=== PATIENT | female | born 1985 | race Caucasian/White ===

== ENCOUNTER 2020-10-08 14:04 | Emergency (ER) | payer OTHER, SELFPAY ==
[2020-10-08] MEDS ORDERED: LIDOCAINE 1% MPF 5 ML VIAL ONE (14:50)
--- NOTE | 2020-10-08 15:46 | EDPHYS ---
Physician Documentation [facility] Name: Anant Deras Age: 35 yrs Sex: Female : 1985 Arrival Date: 10/08/2020 Time: 14:06 Bed 13 Private MD: ED Physician Ministerio Salguero HPI: 10/08 14:41 This 35 yrs old Female presents to ER via Ambulatory with complaints of Hand ps1 Injury. 14:41 patient slammed finger in trunk of car. Laceration localized over dorsal PIP joint of ps1 right hand. Pain is moderate. Has joint pain. ROM limited 2/2 pain. . 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 - Social history:: Smoking status: Patient reports the use of cigarette tobacco products, smokes one-half pack cigarettes per day. ROS: 14:41 Constitutional: Negative for fever, chills, and weight loss, Eyes: Negative for injury, ps1 pain, redness, and discharge, Cardiovascular: Negative for chest pain, palpitations, and edema, Respiratory: Negative for shortness of breath, cough, wheezing, and pleuritic chest pain, Abdomen/GI: Negative for abdominal pain, nausea, vomiting, diarrhea, and constipation, Neuro: Negative for headache, weakness, numbness, tingling, and seizure. 14:41 MS/extremity: Positive for injury or acute deformity, laceration, pain, tenderness, of the dorsal aspect of middle phalanx of right middle finger. 14:41 Skin: Positive for laceration(s), of the dorsal aspect of proximal phalanx of right middle finger. Exam: 14:44 Constitutional: This is a well developed, well nourished patient who is awake, alert, ps1 and in no acute distress. Head/Face: Normocephalic, atraumatic. Eyes: Pupils equal round and reactive to light, extra-ocular motions intact. Lids and lashes normal. Conjunctiva and sclera are non-icteric and not injected. Cardiovascular: Regular rate and rhythm. No gallops, murmurs, or rubs. Normal PMI, no JVD. No pulse deficits. Respiratory: Lungs have equal breath sounds bilaterally, clear to auscultation and percussion. No rales, rhonchi or wheezes noted. No increased work of breathing, no retractions or nasal flaring. Abdomen/GI: Soft, non-tender, with normal bowel sounds. No distension or tympany. No guarding or rebound. No evidence of tenderness throughout. MS/ Extremity: Pulses equal, no cyanosis. Neurovascular intact. Full, normal range of motion. Neuro: Awake and alert, GCS 15, oriented to person, place, time, and situation. Cranial nerves II-XII grossly intact. Sensory grossly intact. 14:44 Skin: injury, laceration(s), that can be described as clean, no foreign body, linear, localized at PIP of dorsal aspect of right hand, third digit.. Vital Signs: 14:27 BP 122 / 78; Pulse 109; Resp 16 S; Temp 97.8(TE); Pulse Ox 100% on R/A; Weight 74.84 kg ca1 (R); Height 5 ft. 2 in. (157.48 cm) (R); Pain 10/10; 14:45 BP 119 / 95; Pulse 97; Resp 17; Pulse Ox 99% on R/A; tw2 15:35 BP 123 / 57; Pulse 91; Resp 17; Pulse Ox 100% on R/A; tw2 14:27 Body Mass Index 30.18 (74.84 kg, 157.48 cm) ca1 Procedures: 15:27 Splinting: Splint applied to dorsal aspect of proximal phalanx of right middle finger ps1 using finger splint, applied by nurse. Laceration: 15:27 Wound Repair of 2.5cm ( 1.0in ) subcutaneous laceration to dorsal aspect of proximal ps1 phalanx of right middle finger. Distal neuro/vascular/tendon intact. Anesthesia: Digital block administered with 2 mls of 1% lidocaine. Wound prep: Moderate cleansing with betadine by nurse. Skin closed with 3 5-0 Prolene using simple sutures and sterile technique. Dressed with Kerlix, tube gauze, non-adherent dressing. Patient tolerated well. MDM: 14:34 Patient medically screened. ps1 10/08 14:38 Order name: XRAY Hand RIGHT 3 View tw2 10/08 14:40 Order name: Prolene, Sutures; Complete Time: 14:41 tw2 10/08 14:40 Order name: Dressing - Wound; Complete Time: 15:38 tw2 10/08 14:40 Order name: Gloves, Sterile; Complete Time: 14:43 tw2 10/08 14:40 Order name: Setup Suture Tray; Complete Time: 14:41 tw2 Administered Medications: 14:38 Drug: Lidocaine (1 %) 5 mg {Note: by Dr. Salguero.} Route: Infiltration; tw2 Disposition: 10/08/20 15:45 Discharged to Home. Impression: Right middle finger laceration. - Condition is Stable. - Discharge Instructions: Laceration Care, Adult, [id number]. - Prescriptions for Anaprox DS 550 mg Oral Tablet - take 1 tablet by ORAL route every 12 hours As needed; 20 tablet. - Work release form, Medication Reconciliation Form, Thank You Letter, Antibiotic Education, Prescription Opioid Use form. - Follow up: Private Physician; When: 10 - 14 days; Reason: Staple/Suture removal. Follow up: Emergency Department; When: As needed; Reason: Fever > 102 F, Worsening of condition. - Problem is new. - Symptoms have improved. Signatures: Dispatcher [employer] EDClary Johnson RN RN tw2 Ministerio Salguero MD MD ps1 Joyce Valdez RN RN ca1 Corrections: (The following items were deleted from the chart) 16:01 15:45 10/08/2020 15:45 Discharged to Home. Impression: Right middle finger laceration. tw2 Condition is Stable. Forms are Work release form, Medication Reconciliation Form, Thank You Letter, Antibiotic Education, Prescription Opioid Use. Follow up: Private Physician; When: 10 - 14 days; Reason: Staple/Suture removal. Follow up: Emergency Department; When: As needed; Reason: Fever > 102 F, Worsening of condition. Problem is new. Symptoms have improved. ps1
--- NOTE | 2020-10-08 15:46 | ER ---
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 Lac on R 3rd and 4th digit. Bleeding controlled. Coronavirus screen: Client denies travel out of the [place] in the last 14 days. At this time, the client does not indicate any symptoms associated with coronavirus-19. Ebola Screen: Patient negative for fever greater than or equal to 101.5 degrees Fahrenheit, and additional compatible Ebola Virus Disease symptoms Patient denies exposure to infectious person. Patient denies travel to an Ebola-affected area in the 21 days before illness onset. No symptoms or risks identified at this time. Initial Sepsis Screen: Does the patient meet any 2 criteria? No. Patient's initial sepsis screen is negative. Does the patient have a suspected source of infection? No. Patient's initial sepsis screen is negative. Risk Assessment: Do you want to hurt yourself or someone else? Patient reports no desire to harm self or others. Onset of symptoms was October 08, 2020. 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 - Social history:: Smoking status: Patient reports the use of cigarette tobacco products, smokes one-half pack cigarettes per day. Screenin:33 Abuse screen: Denies threats or abuse. Nutritional screening: No deficits noted. tw2 Tuberculosis screening: No symptoms or risk factors identified. Fall Risk None identified. Assessment: 14:32 General: Appears uncomfortable. Pain: Complains of pain in right hand. Neuro: Level of tw2 Consciousness is awake, alert, obeys commands, Oriented to person, place, time, situation. Cardiovascular: Patient's skin is warm and dry. Respiratory: Airway is patent Respiratory effort is even, unlabored, Respiratory pattern is regular, symmetrical. GI: No signs and/or symptoms were reported involving the gastrointestinal system. : No signs and/or symptoms were reported regarding the genitourinary system. EENT: No signs and/or symptoms were reported regarding the EENT system. Derm: No signs and/or symptoms reported regarding the dermatologic system. Musculoskeletal: Swelling present in dorsal aspect of distal phalanx of right middle finger, dorsal aspect of middle phalanx of right middle finger, dorsal aspect of proximal phalanx of right middle finger and dorsal aspect of middle phalanx of right ring finger. Injury Description: Laceration sustained to dorsal aspect of proximal phalanx of right middle finger and dorsal aspect of middle phalanx of right middle finger. 15:34 Reassessment: Patient appears in no apparent distress at this time. Patient and/or tw2 family updated on plan of care and expected duration. Pain level reassessed. Patient is alert, oriented x 3, equal unlabored respirations, skin warm/dry/pink. Patient states feeling better. 16:01 Reassessment: Patient appears in no apparent distress at this time. Patient and/or tw2 family updated on plan of care and expected duration. Pain level reassessed. Patient is alert, oriented x 3, equal unlabored respirations, skin warm/dry/pink. Vital Signs: 14:27 BP 122 / 78; Pulse 109; Resp 16 S; Temp 97.8(TE); Pulse Ox 100% on R/A; Weight 74.84 kg ca1 (R); Height 5 ft. 2 in. (157.48 cm) (R); Pain 10/10; 14:45 BP 119 / 95; Pulse 97; Resp 17; Pulse Ox 99% on R/A; tw2 15:35 BP 123 / 57; Pulse 91; Resp 17; Pulse Ox 100% on R/A; tw2 14:27 Body Mass Index 30.18 (74.84 kg, 157.48 cm) ca1 ED Course: 14:06 Patient arrived in ED. ds1 14:20 Ministerio Salguero MD is Attending Physician. ps1 14:29 Triage completed. ca1 14:31 Arm band placed on right wrist. ca1 14:31 Bed in low position. Call light in reach. Pulse ox on. NIBP on. tw2 14:32 Clary Armstrong, RN is Primary Nurse. tw2 15:13 Assist provider with laceration repair on dorsal aspect of middle phalanx of right tw2 middle finger and dorsal aspect of proximal phalanx of right middle finger that was 2.5 cm. or less using sutures. Set up tray. Performed by Ministerio Salguero MD Dressed with non-adherent dressing, 4x4, and coban after xray is performed Patient tolerated well. Patient did not have IV access during this emergency room visit. 15:38 Dressings: non-adherent dressing x 1 dorsal aspect of proximal phalanx of right middle tw2 finger 4X4s X 1; dorsal aspect of proximal phalanx of right middle finger finger splint with coban, cms in tact, pt tolerated well. 15:44 XRAY Hand RIGHT 3 View In Process Unspecified. EDMS Administered Medications: 14:38 Drug: Lidocaine (1 %) 5 mg {Note: by Dr. Salguero.} Route: Infiltration; tw2 Outcome: 15:45 Discharge ordered by . ps1 16:00 Discharged to home ambulatory. tw2 16:00 Condition: stable 16:00 Discharge instructions given to patient, Instructed on discharge instructions, follow up and referral plans. medication usage, wound care, CMS checks Demonstrated understanding of instructions, follow-up care, Prescriptions given X 1. 16:01 Patient left the ED. tw2 Signatures: Dispatcher [employer] EDIL Zara Larson ds1 Clary Armstrong, MINGO RN tw2 Ministerio Salguero MD MD ps1 Joyce Valdez RN RN ca1
--- NOTE | 2020-10-08 16:11 | RAD REPORT ---
EXAM DESCRIPTION: RAD - Hand Right 3 View - 10/08/2020 3:43 pm CLINICAL HISTORY: DEFORMITY Trauma, pain COMPARISON: No comparisons FINDINGS: Soft tissue swelling is seen affecting the third and fourth finger. No fracture, dislocati on or radiopaque foreign body.
[2020-10-08 21:06] VITALS: TEMP 97.8
[2020-10-08 21:08] VITALS: BP 123/57; O2SAT 100
== END 2020-10-08 16:01 | disposition home or self-care (01) ==
LOC: ER 14:04
PROC: 0JQJ0ZZ Repair Right Hand Subcutaneous Tissue and Fascia, Open Approach (ICD-10-PCS; principal; 2020-10-08)
DX: S61.212A Laceration without foreign body of right middle finger without damage to nail, initial encounter (principal); W23.0XXA Caught, crushed, jammed, or pinched between moving objects, initial encounter; Y93.9 Activity, unspecified; Y92.9 Unspecified place or not applicable; F17.210 Nicotine dependence, cigarettes, uncomplicated
CPT/HCPCS: 99284

== ENCOUNTER 2021-06-27 21:38 | Inpatient (IN) | payer SELFPAY ==
[2021-06-27] MEDS ORDERED: ONDANSETRON 4 MG/2 ML VIAL ONE (23:32)
[2021-06-27 23:42] LABS: Absolute Lymphocytes (CBC) 0.7 K/uL (0.7-4.9); Basophils % 0.5 % (0-1.3); Hematocrit 42.3 % (36.0-45.0); Lymphocytes % 5.1 % (15.3-44.8); RBC Red Blood Cell Count 4.42 M/uL (3.86-4.86)
[2021-06-27 23:59] LABS: ALT/SGPT 96 U/L (12-78); AST/SGOT 40 U/L (15-37); Albumin 3.8 g/dL (3.4-5.0); Alkaline Phosphatase 106 U/L (45-117); BUN Blood Urea Nitrogen 6 mg/dL (7-18); Bicarbonate 27 mmol/L (21-32); Bilirubin Direct 0.2 mg/dL (0-0.2); Bilirubin Total 0.5 mg/dL (0.2-1.0); Glucose Level 133 mg/dL (74-106); Lipase 60 U/L (73-393); Potassium 3.7 mmol/L (3.5-5.1); Protein, Total 8.7 g/dL (6.4-8.2); Sodium Level 137 mmol/L (136-145)
[2021-06-28] MEDS ORDERED: MAGNES/ALUMIN/SIMET 30ML UCUP ONE (01:31)
[2021-06-28] MEDS ORDERED: LIDOCAINE VISCOUS 2% SOLN 15 ML UDC ONE (01:31)
[2021-06-28] MEDS ORDERED: ONDANSETRON 4 MG/2 ML VIAL ONE ×4 (02:22→10:37)
[2021-06-28] MEDS ORDERED: MORPHINE 4 MG/ML SYR ONE ×2 (02:22→05:27)
[2021-06-28] MEDS ORDERED: NA CHLORIDE 0.9% 1,000 ML ONE (02:22)
--- NOTE | 2021-06-28 03:10 | ER ---
Nurse's Notes [facility] Name: Anant Deras Age: 36 yrs Sex: Female : 1985 Arrival Date: 06/27/2021 Time: 21:43 Bed 12 Private MD: Diagnosis: Unspecified acute appendicitis Presentation: 06/27 23:00 Chief complaint: Patient states: upper abdominal pain for several days, N/V/D denies em fever, developed a hump in abdomen past few days. Coronavirus screen: Client denies travel out of the [place] in the last 14 days. Ebola Screen: Patient negative for fever greater than or equal to 101.5 degrees Fahrenheit, and additional compatible Ebola Virus Disease symptoms Patient denies exposure to infectious person. Patient denies travel to an Ebola-affected area in the 21 days before illness onset. No symptoms or risks identified at this time. Initial Sepsis Screen: Does the patient meet any 2 criteria? HR > 90 bpm. No. Patient's initial sepsis screen is negative. Does the patient have a suspected source of infection? No. Patient's initial sepsis screen is negative. Risk Assessment: Do you want to hurt yourself or someone else? Patient reports no desire to harm self or others. Onset of symptoms was June 27, 2021. 23:00 Method Of Arrival: Ambulatory em 23:00 Acuity: ANGELO 3 em Triage Assessment: 23:00 General: Appears uncomfortable, Behavior is crying, restless, Denies fever. Pain: em Complains of pain in abdomen Pain currently is 10 out of 10 on a pain scale. Pain began 2-3 days ago. Neuro: Level of Consciousness is awake, alert, obeys commands, Oriented to person, place, time, situation, Appropriate for age. Cardiovascular: Capillary refill < 3 seconds Patient's skin is warm and dry. Respiratory: Airway is patent Respiratory effort is even, unlabored, Respiratory pattern is regular, symmetrical. GI: Abdomen is round distended, Reports nausea, vomiting, Patient currently denies diarrhea. Derm: Skin is intact, is healthy with good turgor, Skin is pink, warm \T\ dry. Musculoskeletal: Capillary refill < 3 seconds, Range of motion: intact in all extremities. 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 - Social history:: Smoking status: Patient reports the use of cigarette tobacco products, denies chronic smoking, but will smoke occasionally. Screenin:00 Abuse screen: Denies threats or abuse. Nutritional screening: No deficits noted. em Tuberculosis screening: No symptoms or risk factors identified. Fall Risk None identified. Vital Signs: 23:00 BP 111 / 77; Pulse 100; Resp 20; Temp 98.7; Pulse Ox 100% on R/A; Weight 79.38 kg; em Height 5 ft. 2 in. (157.48 cm); 23:00 Body Mass Index 32.01 (79.38 kg, 157.48 cm) em ED Course: 21:43 Patient arrived in ED. bp1 23:00 Patient has correct armband on for positive identification. Side rails up X2. em 23:02 Triage completed. em 23:02 Arm band placed on. em 23:36 Initial lab(s) drawn, by me, sent to lab. Inserted saline lock: in right antecubital em area, using aseptic technique. Blood collected. 06/28 01:33 Yuniel Lakhani PA is PHCP. cp 01:33 Darion Oliva MD is Attending Physician. cp 02:16 CT Abd/Pelvis - IV Contrast Only In Process Unspecified. EDMS 03:08 Timoteo Lindsay MD is Hospitalizing Provider. cp Administered Medications: 06/27 23:16 Drug: Zofran (Ondansetron) 4 mg Route: IVP; Site: right antecubital; em 06/28 01:10 Drug: GI Cocktail without - (Maalox Suspension 30 ml, Lidocaine Liquid 2 % 15 em ml) Route: PO; 02:00 Follow up: Response: No adverse reaction bb 02:00 Drug: morphine 4 mg Route: IVP; Site: right antecubital; bb 02:00 Drug: Zofran (Ondansetron) 4 mg Route: IVP; Site: right antecubital; bb 02:00 Drug: NS 0.9% 1000 ml Route: IV; Rate: 1 bolus; Site: right antecubital; bb 03:19 Drug: Zosyn (piperacillin-tazobactam) 3.375 grams Route: IVPB; Infused Over: 60 mins; ea Site: right antecubital; 03:19 Drug: Dilaudid (HYDROmorphone) 1 mg Route: IVP; Site: right antecubital; ea 03:19 Drug: NS 0.9% 1000 ml Route: IV; Rate: 1 bolus; Site: right antecubital; ea 03:20 Drug: NS 0.9% 1000 ml Route: IV; Rate: 125 ml/hr; Site: right antecubital; ea Outcome: 03:09 Decision to Hospitalize by Provider. cp 08:59 Patient left the ED. ss Signatures: Dispatcher [employer] Jong Pollack, RN RN Concetta Yusuf RN RN bb Smirch, Shelby, RN RN ss Yuniel Lakhani PA PA cp Antunez, Elena, RN RN Antonella Sanchez
--- NOTE | 2021-06-28 03:10 | EDPHYS ---
Physician Documentation [facility] Name: Anant Deras Age: 36 yrs Sex: Female : 1985 Arrival Date: 06/27/2021 Time: 21:43 Bed 12 Private MD: ED Physician Darion Oliva HPI: 06/28 02:00 This 36 yrs old Female presents to ER via Ambulatory with complaints of cp Abdominal Pain, -sharp, Vomiting blood. 02:00 The patient presents with abdominal pain mid abdomen. Onset: The symptoms/episode cp began/occurred 3 day(s) ago. The symptoms do not radiate. Associated signs and symptoms: Pertinent positives: nausea and vomiting, anorexia, vomiting blood, Pertinent negatives: blood in stools, diarrhea, fever, headache, active vomiting. The symptoms are described as constant. Severity of pain: in the emergency department the pain is unchanged despite home interventions. 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 - Social history:: Smoking status: Patient reports the use of cigarette tobacco products, denies chronic smoking, but will smoke occasionally. ROS: 06/28 02:05 Constitutional: Positive for poor PO intake, Negative for body aches, chills, fever. cp 02:05 Eyes: Negative for injury, pain, redness, and discharge. cp 02:05 ENT: Negative for ear pain, sore throat, difficulty swallowing, difficulty handling secretions. 02:05 Cardiovascular: Negative for chest pain. 02:05 Respiratory: Negative for cough, shortness of breath, wheezing. 02:05 Abdomen/GI: Positive for abdominal pain, nausea and vomiting, hematemesis, Negative for diarrhea, constipation, black/tarry stool, rectal bleeding. 02:05 Back: Negative for radiated pain. 02:05 : Negative for urinary symptoms. 02:05 Neuro: Negative for altered mental status, headache, weakness. 02:05 All other systems are negative. Exam: 02:10 Constitutional: The patient appears in no acute distress, alert, awake, non-toxic, well cp developed, well nourished, uncomfortable. 02:10 Head/Face: Normocephalic, atraumatic. cp 02:10 Eyes: Periorbital structures: appear normal, Conjunctiva: normal, no exudate, no injection, Sclera: no appreciated abnormality, Lids and lashes: appear normal, bilaterally. 02:10 ENT: External ear(s): are unremarkable, Nose: is normal, Mouth: Lips: moist, Oral mucosa: moist, Posterior pharynx: Airway: no evidence of obstruction, patent. 02:10 Chest/axilla: Inspection: normal, Palpation: is normal, no crepitus, no tenderness. 02:10 Cardiovascular: Rate: tachycardic, Rhythm: regular. 02:10 Respiratory: the patient does not display signs of respiratory distress, Respirations: normal, no use of accessory muscles, no retractions, labored breathing, is not present, Breath sounds: are clear throughout, no decreased breath sounds, no stridor, no wheezing. 02:10 Abdomen/GI: Inspection: distension, that is mild, Bowel sounds: active, all quadrants, Palpation: soft, in all quadrants, severe abdominal tenderness, in the umbilical area, rebound tenderness, is not appreciated, voluntary guarding, is elicited in the umbilical area. 02:10 Back: CVA tenderness, is absent. Vital Signs: 06/27 23:00 BP 111 / 77; Pulse 100; Resp 20; Temp 98.7; Pulse Ox 100% on R/A; Weight 79.38 kg; em Height 5 ft. 2 in. (157.48 cm); 23:00 Body Mass Index 32.01 (79.38 kg, 157.48 cm) em MDM: 06/28 00:00 Differential diagnosis: appendicitis, bowel obstruction, cholecystitis, Cholelithiasis, cp gastritis, pancreatitis, Ureterolithiasis, urinary tract infection, peritonitis, hernia. 01:42 Patient medically screened. cp 02:55 Data reviewed: vital signs, nurses notes, lab test result(s), radiologic studies, CT cp scan. Physician consultation: Timoteo Lindsay MD was called at 02:50, was contacted at 02:50, regarding admission, to the medical/surgical unit. patient's condition, and will see patient later today, would like medications started, Zosyn. 06/27 23:15 Order name: Basic Metabolic Panel; Complete Time: 01:42 em 06/28 01:44 Interpretation: Normal except: GLUC 133; BUN 6. cp 06/27 23:15 Order name: CBC with Diff; Complete Time: :42 em 06/28 01:45 Interpretation: Normal except: WBC 13.10; LORIN% 90.8; LYM% 5.1; NEUT A 11.9. cp 06/27 23:15 Order name: Hepatic Function; Complete Time: :42 em 06/27 23:15 Order name: Lipase; Complete Time: :42 em 06/27 23:15 Order name: Test, Serum; Complete Time: 01:42 em 06/28 03:21 Order name: Basic Metabolic Panel EDMS 06/28 03:21 Order name: Basic Metabolic Panel EDMS 06/28 03:21 Order name: CBC with Automated Diff EDMS 06/28 03:21 Order name: CBC with Automated Diff EDMS 06/28 03:21 Order name: Lipase EDMS 06/28 03:21 Order name: Lipase EDMS 06/28 03:21 Order name: Liver (Hepatic) Function EDMS 06/28 03:21 Order name: Liver (Hepatic) Function EDMS 06/27 23:15 Order name: IV Saline Lock; Complete Time: 23:16 em 06/27 23:15 Order name: Labs collected and sent; Complete Time: 23:16 em 06/28 01:14 Order name: CT Abd/Pelvis - IV Contrast Only em 06/28 01:50 Order name: NPO; Complete Time: 02:14 cp 06/28 03:21 Order name: NPO EDMS 06/28 03:51 Order name: COVID-19 : Document "Date of Symptom Onset" if Symptomatic. tt3 06/28 04:24 Order name: SARS-COV-2 RT PCR EDMS Administered Medications: 06/27 23:16 Drug: Zofran (Ondansetron) 4 mg Route: IVP; Site: right antecubital; em 06/28 01:10 Drug: GI Cocktail without - (Maalox Suspension 30 ml, Lidocaine Liquid 2 % 15 em ml) Route: PO; 02:00 Follow up: Response: No adverse reaction bb 02:00 Drug: morphine 4 mg Route: IVP; Site: right antecubital; bb 02:00 Drug: Zofran (Ondansetron) 4 mg Route: IVP; Site: right antecubital; bb 02:00 Drug: NS 0.9% 1000 ml Route: IV; Rate: 1 bolus; Site: right antecubital; bb 03:19 Drug: Zosyn (piperacillin-tazobactam) 3.375 grams Route: IVPB; Infused Over: 60 mins; ea Site: right antecubital; 03:19 Drug: Dilaudid (HYDROmorphone) 1 mg Route: IVP; Site: right antecubital; ea 03:19 Drug: NS 0.9% 1000 ml Route: IV; Rate: 1 bolus; Site: right antecubital; ea 03:20 Drug: NS 0.9% 1000 ml Route: IV; Rate: 125 ml/hr; Site: right antecubital; ea Disposition: 06/29 06:46 Co-signature as Attending Physician, Darion Oliva MD. [email or web address] Disposition Summary: 06/28/21 03:09 Hospitalization Ordered Hospitalization Status: Observation cp Provider: Timoteo Lindsay cp Condition: Stable cp Problem: new cp Symptoms: have improved cp Bed/Room Type: Standard cp Location: [facility] ER HOLD(06/28/21 04:25) Room Assignment: ERHOLD-(06/28/21 04:25) Diagnosis - Unspecified acute appendicitis cp Forms: - Medication Reconciliation Form cp - SBAR form cp Signatures: Dispatcher [employer] EDMS Shreya James RN RN mw Munoz, Edgar, RN RN em Ballard, Brenda, RN RN bb Page, Corey, PA PA cp Antunez, Elena, RN RN ea Holmes, Maurice, MD MD [email or web address] Corrections: (The following items were deleted from the chart) 06/28 03:21 03:00 CORONAVIRUS+[id number] ordered. EDNY EDMS 04:25 03:09 Telemetry/MedSurg (observation) [facility] 04:25 03:09 cp mw
[2021-06-28] MEDS ORDERED: MORPHINE 4 MG/ML SYR IV PRN (03:16)
[2021-06-28] MEDS ORDERED: ONDANSETRON 4 MG/2 ML VIAL IV PRN (03:16)
[2021-06-28] MEDS ORDERED: HYDROMORPHONE HCL 1 MG/ML INJ ONE ×3 (03:21→10:37)
[2021-06-28] MEDS ORDERED: NA CHLORIDE 0.9% 100 ML ONE (03:21)
[2021-06-28] MEDS ORDERED: PIPERACIL/TAZO 3.375 GM VIAL IV ONE (03:21)
[2021-06-28] MEDS ORDERED: NA CHLORIDE 0.9% 2,000 ML ONE (03:21)
[2021-06-28] MEDS ORDERED: PIPER/TAZO/NS 3.375gm 3.375 GM/100 ML BAG IVPB SCH ×2 (06:00→09:00)
[2021-06-28] MEDS ORDERED: GLYCOPYRROLATE 0.2 MG/ML SYR ONE ×2 (09:19→09:20)
[2021-06-28] MEDS ORDERED: FENTANYL CITR 100 MCG/2 ML ONE (09:19)
[2021-06-28] MEDS ORDERED: propofoL 200 MG/20 ML VIAL IV ONE (09:19)
[2021-06-28] MEDS ORDERED: dexAMETHasone 4 MG/ML VIAL ONE (09:20)
[2021-06-28] MEDS ORDERED: LIDOCAINE 1% MPF 5 ML VIAL ONE (09:20)
[2021-06-28] MEDS ORDERED: MIDAZOLAM HCL 2 MG/2 ML INJ ONE (09:20)
[2021-06-28] MEDS ORDERED: KETOROLAC 30 MG/ML INJ ONE (09:21)
[2021-06-28] MEDS ORDERED: ROCURONIUM 50 MG/5 ML VIAL IV ONE (09:22)
[2021-06-28] MEDS ORDERED: HYDROMORPHONE HCL 1 MG/ML INJ IV ONE ×3 (09:25→11:10)
[2021-06-28] MEDS ORDERED: BUPIVACAINE 0.5% PF 10 ML VIAL ONE (09:27)
[2021-06-28] MEDS ORDERED: NEOSTIGMINE 1 MG/ML -5 ML ONE (09:29)
[2021-06-28] MEDS ORDERED: Ringers Lactate 1,000 ML IV ONE (09:30)
[2021-06-28] MEDS ORDERED: BUPIVACAINE 0.25% PF 10 ML VIAL ONE (09:44)
--- NOTE | 2021-06-28 10:36 | HP ---
Date of Admission: 06/28/2021 Brief History Of Present Illness: The patient is a 36-year-old female with a past history of drug abuse including ecstasy as of 2 weeks ago. She smokes marijuana frequently, who developed 3 days of abdominal pain. She states the pain was in the periumbilical, now right lower quadrant. She has never had similar episodes before in the past. No sick contacts. No recent travel. She is uns ure of any COVID exposures during her admission. She was noted to be positive for COVID-19 and an ac upper sk[place] COVID-19 infection. Past Medical History: Significant for substance abuse and anxiety. Past Surgical History: She has had three C-sections. Social History: She admits to smoking cigarettes as well as significant drug abuse history as of 2 w eeks ago. She used ecstasy and marijuana. She denies any other recreational drug use at this time a nd denies alcohol other than recreationally. She denies a heavy alcohol history. Family History: Reviewed, noncontributory. Review of Systems: A 10-point review of systems other than HPI, denies. Physical Examination: Vital Signs: At the time of examination, her BMI is 30. Her blood pressure was 136/73, pulse is 97, respiratory rate 18, temperature 98.5. General: She is awake, alert, and oriented. She appears very uncomfortable in bed and with mild dis tress due to pain. HEENT: She is otherwise normocephalic. Her sclerae are anicteric. Mucous membranes are moist. She has very poor dentition with multiple teeth with various stages of decomposition. Neck: Supple without JVD. Chest: Symmetric excursion. Cardiovascular: Rate and rhythm. Pulmonary: Clear to auscultation bilaterally. Abdomen: Positive guarding. Positive rebound. Positive focal peritonitis at McBurney's point. It is obese generally. Well-healed scars are evident from previous surgeries. Extremities: No clubbing, cyanosis, or edema. Skin: Warm and dry. Laboratory Data: White blood count of 13.1, hemoglobin is 14.5, hematocrit of 42.3, platelet count i s 333, neutrophils are 90%. Her sodium is 137, potassium 3.7, chloride 104, carbon dioxide 27, BUN 6 , creatinine 0.7, glucose is 133, total bilirubin 0.5, direct bilirubin 0.2, AST 40, ALT 96, alkaline phosphatase 106. Her lipase is 60. Urine test was negative. COVID was positive on the P CR on her smear, evident for active infection at this time. She had a CT scan of the abdomen and pel vis, which was officially read as findings consistent with acute appendicitis. No evidence of periap pendiceal abscess. The appendix is dilated and thick walled, measuring 1.2 cm enhanced with the eliseo appendiceal wall is noted. Mild inflammation is present. Assessment And Plan: This is a 36-year-old female who presents with signs and symptoms of acute non perforated appendicitis. 1.IV fluid hydration. 2.Antibiotic coverage with Zosyn 3.375 IV q.6. 3.I have explained the risks, benefits, alternatives of laparoscopic possible open appendectomy incl uding, but not limited to bleeding, infection, damage to surrounding tissue, need for further operati on procedures. The patient agrees to as indicated. JACINTA/SAGRARIO Voice ID: [id number]
[2021-06-28] MEDS ORDERED: HYDROCODONE/APAP 7.5/325 MG TAB ONE ×2 (10:37→11:44)
--- NOTE | 2021-06-28 10:44 | P.OP ---
Preoperative diagnosis: Acute non-perforated appendicitis Postoperative diagnosis: Acute non-perforated appendicitis Primary procedure: Laparoscopic Appendectomy Anesthesia: GETA + Local Estimated blood loss: <10cc Specimen: Vermiform Appendix Findings: Acute Non-perforated suppurative appendicitis Complications: None Transferred to: Recovery Room Condition: Good
[2021-06-28 11:02] VITALS: TEMP 97.5
--- NOTE | 2021-06-28 11:36 | OP ---
Date of Procedure: 06/28/2021 Surgeon: Timoteo Lindsay MD, Preoperative Diagnosis: Acute nonperforated appendicitis. Postoperative Diagnosis: Acute nonperforated appendicitis. Procedure Performed: Laparoscopic appendectomy. Anesthesia: General endotracheal plus local. Estimated Blood Loss: Less than 10 cc. Specimen: Vermiform appendix. Findings: Acute nonperforated suppurative appendicitis. Complications: None. Drains: None. Disposition: Transferred to recovery room in good condition. Procedure In Detail: After informed consent was obtained, the patient was brought to the operating r oom, prepped and draped in the usual sterile fashion. After adequate anesthesia was achieved, an inf raumbilical area was anesthetized with 0.25% Marcaine, sharply incised. A 5 mm 0-degree optical troc ar was introduced in the abdomen without evidence of complication. Insufflation obtained to 15 mmHg at this time. There was no injury to vital structures upon entry to the abdomen. Two additional tro cars were placed, one in the right lower quadrant, one in the left lower quadrant. Both of these had been anesthetized, sharply incised. A 5 mm trocar was placed under direct visualization without enoch dence of complication. The umbilical trocar was then up-sized to a 12 mm under direct visualization without evidence of complication. The patient positioned head down and right side up position. Rat heted grasper was used to grasp the patient's cecum and dissect down circumferentially around to find the appendix. The appendix was found to be have suppurative changes without any obvious perforation and no abscess was evident, but murky fluid was evident in the pelvis as well as in the right lower quadrant. This was suctioned out at this point and I then created a mesoappendiceal window using a M aryland retractor. Endo FAINA 35 blue load fired across the base of the appendix and the LigaSure was used to take the mesoappendix down without evidence of complication. Hemostasis was achieved at the procedure after the mesoappendix was taken down without any additional hemostatic maneuvers. The Lig aSure device was used to take the mesoappendix down as described. The appendix was then placed in En doCatch bag and removed through the umbilical trocar and sent off for pathologic examination. The ar ea was then copiously irrigated. The patient positioned in multiple positions to allow for complete washout of the right side of the abdomen. The pericolic gutter and the pelvis which were found to blue ve murky fluid. She had some inflammatory changes in the pelvis, likely reactive from the appendicit is adjacent to this area and it encompassed all the way through the right adnexa and down in the pelv is. After this was all cleared out and suction out, the effluent was clear. There was no additional hemostatic measures required and the clips were found to be in good anatomic position. The patient positioned back in neutral position. Remaining effluent was suctioned out. The umbilical trocar sit e was then closed using a Brady-James suture passer with 0 Vicryl in interrupted fashion. Good a pproximation of tissues. The abdomen was completely desufflated under direct visualization without e vidence of complication. All trocars removed. All skin incisions were copiously irrigated, closed w ith interrupted rajni. The patient tolerated the procedure well without evidence of complication, transferred to PACU in good condition. All counts were correct at the end of the case. JACINTA/SAGRARIO Voice ID: [id number] Report ID: [id number]
[2021-06-28 12:10] VITALS: BP 102/61; O2SAT 93
--- NOTE | 2021-06-28 20:21 | RAD REPORT ---
EXAM DESCRIPTION: CT - Abdomen Pelvis W Contrast - 06/28/2021 6:28 am ADDENDUM #1 THIS REPORT CONTAINS FINDINGS THAT MAY BE CRITICAL TO PATIENT CARE: The findings were verbally discus sed via telephone conference with Dr. Oliva by Dr. Jigna Lebron on 06/28/2021 2:31 AM CDT .The resu lts were acknowledged and understood. Electronically signed by: Sophie Lebron MD 06/28/2021 6:56 AM CDT End of Addendum EXAM: CT Abdomen and Pelvis With Intravenous Contrast CLINICAL HISTORY: The patient is 36 years old and is Female; ABD PAIN TECHNIQUE: Axial computed tomography images of the abdomen and pelvis with intravenous contrast. S agittal and coronal reformatted images were created and reviewed. This CT exam was performed using one or more of the following dose reduction techniques: automated exposure control, adjustment of t he mA and/or kV according to patient size, and/or use of iterative reconstruction technique. COMPARISON: CT of the abdomen and pelvis July 16, 2015 FINDINGS: LUNG BASES: Minimal groundglass infiltrate within the right middle and right lower lobes is noted. ABDOMEN: LIVER: The liver is enlarged and diffusely fatty. GALLBLADDER AND BILE DUCTS: A few noncalcified gallstones are present within the gallbladder. The re is no ductal dilatation. PANCREAS: No ductal dilation. No mass. SPLEEN: Unremarkable. ADRENALS: Unremarkable. No mass. KIDNEYS AND URETERS: Unremarkable. The kidneys enhance symmetrically. No obstructing renal or ure teral calculus is seen. No hydronephrosis or hydroureter. No perinephric fluid or stranding. STOMACH AND BOWEL: The stomach is distended with fluid and air. The small bowel is fluid-filled b ut normal in caliber. Stool is present throughout colon. Scattered colonic diverticula are noted with out surrounding inflammation. There is no mucosal thickening or evidence of obstruction. PELVIS: APPENDIX: The appendix is dilated and thick-walled measuring up to 1.2 cm. Enhancement of the bianca endiceal wall is noted. Mild surrounding inflammatory stranding is present. BLADDER: Unremarkable. No mass. REPRODUCTIVE: Unremarkable as visualized. ABDOMEN and PELVIS: INTRAPERITONEAL SPACE: Free fluid is present within the pelvis which is likely physiologic. No free air. BONES/JOINTS: No acute fracture. SOFT TISSUES: The soft tissues are normal. VASCULATURE: Unremarkable. No abdominal aortic aneurysm. LYMPH NODES: Unremarkable. No enlarged lymph nodes. IMPRESSION: 1. Findings consistent with acute appendicitis. No evidence of periappendiceal abscess . 2. Cholelithiasis without CT evidence to suggest cholecystitis. 3. Colonic diverticulosis. Electronically signed by: Sophie Lebron MD 06/28/2021 2:29 AM CDT Due to temporary technical issues with the PACS/Fluency reporting system, reports are being signed by the in house radiologists without review as a courtesy to insure prompt reporting. The interpreting radiologist is fully responsible for the content of the report.
== END 2021-06-28 12:40 | disposition home or self-care (01) | DRG 341 ==
LOC: ER 21:38 → ERHOLD 06-28 03:23 → OBSVTOIN 06-28 08:13
PROVIDERS: ADMIT Surgery; ATTEND Surgery
PROC: 0DTJ4ZZ Resection of Appendix, Percutaneous Endoscopic Approach (ICD-10-PCS; principal; 2021-06-28 09:30)
DX: K35.80 Unspecified acute appendicitis (principal); U07.1 COVID-19; F12.10 Cannabis abuse, uncomplicated; F16.10 Hallucinogen abuse, uncomplicated; F41.9 Anxiety disorder, unspecified; F17.210 Nicotine dependence, cigarettes, uncomplicated
CPT/HCPCS: 36415; 74177; 80048; 80076; 83690; 84703; 85025; 88304; 96374; 96375; 99284; G0378; J1100; J1170; J2250; J2405; J2543; J2704; J2710; J3010; J7030; J7120; Q9967; U0003

== ENCOUNTER 2022-07-17 06:00 | Emergency (ER) | payer SELFPAY ==
--- NOTE | 2022-07-17 07:04 | ER ---
Nurse's Notes [facility] Name: Anant Deras Age: 37 yrs Sex: Female : 1985 Arrival Date: 07/17/2022 Time: 06:05 Bed 15 Private MD: Diagnosis: Sprain of calcaneofibular ligament of left ankle;Sprain of ankle Presentation: 07/17 06:09 Chief complaint: Patient states: "I broke my ankle a few years back. Ever since I have tw5 problems with it. Today I was getting dressed for work and I stumbled. Now the pain is so bad my toes are numb.". Coronavirus screen: Vaccine status: Patient reports being unvaccinated. Ebola Screen: Patient negative for fever greater than or equal to 101.5 degrees Fahrenheit, and additional compatible Ebola Virus Disease symptoms Patient denies exposure to infectious person. Patient denies travel to an Ebola-affected area in the 21 days before illness onset. Initial Sepsis Screen: Does the patient meet any 2 criteria? HR > 90 bpm. Does the patient have a suspected source of infection? No. Patient's initial sepsis screen is negative. Risk Assessment: Do you want to hurt yourself or someone else? Patient reports no desire to harm self or others. Onset of symptoms was July 17, 2022 at 05:15. 06:09 Method Of Arrival: Wheelchair tw5 06:09 Acuity: ANGELO 4 tw5 Triage Assessment: 06:11 General: Appears uncomfortable, Behavior is cooperative, appropriate for age, crying. tw5 Pain: Complains of pain in left medial ankle and dorsum of left foot Pain currently is 10 out of 10 on a pain scale. Musculoskeletal: Reports Pain is 10 out of 10 on a pain scale. 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 - Social history:: Smoking status: Patient reports the use of cigarette tobacco products, denies chronic smoking, but will smoke occasionally. - Family history:: not pertinent. Screenin:00 Abuse screen: Denies threats or abuse. Denies injuries from another. Nutritional jg9 screening: No deficits noted. Tuberculosis screening: No symptoms or risk factors identified. Fall Risk Fall in past 12 months (25 points). Assessment: 07:00 Reassessment: No changes from previously documented assessment. Patient and/or family jg9 updated on plan of care and expected duration. Pain level reassessed. Patient is alert, oriented x 3, equal unlabored respirations, skin warm/dry/pink. General: Appears uncomfortable, Behavior is anxious. Pain:. Pain: Complains of pain in left lateral ankle, left Achilles, left medial ankle and anterior aspect of left ankle. Neuro: No deficits noted. Cardiovascular: No deficits noted. Respiratory: No deficits noted. GI: No deficits noted. : No deficits noted. EENT: No deficits noted. Derm: No deficits noted. Musculoskeletal: Reports pain in left lateral ankle, left Achilles, left medial ankle and anterior aspect of left ankle. Vital Signs: 06:09 BP 99 / 78; Pulse 95; Resp 18; Temp 98.7; Pulse Ox 99% on R/A; Weight 75.3 kg; Height 5 tw5 ft. 2 in. (157.48 cm); Pain 10/10; 07:15 BP 121 / 68; Pulse 86; Resp 17 S; Pulse Ox 95% on R/A; Pain 9/10; jg9 06:09 Body Mass Index 30.36 (75.30 kg, 157.48 cm) tw5 ED Course: 06:05 Patient arrived in ED. ja2 06:11 Triage completed. tw5 06:11 Arm band placed on left wrist. tw5 06:34 Yuniel Craig MD is Attending Physician. huy 06:53 Ankle Left 3 View XRAY In Process Unspecified. EDMS 07:00 Patient has correct armband on for positive identification. Bed in low position. Call jg9 light in reach. Side rails up X 1. 07:02 Og Portillo MD is Referral Physician. huy 07:18 Jeri Espana, MINGO is Primary Nurse. jg9 07:54 No provider procedures requiring assistance completed. jg9 07:54 Patient did not have IV access during this emergency room visit. jg9 Administered Medications: 07:15 Drug: Motrin (ibuprofen) 600 mg Route: PO; jg9 07:55 Follow up: Response: No adverse reaction; Medication administered at discharge. jg9 07:15 Drug: [place] (HYDROcodone-acetaminophen) 10 mg-325 mg 1 tabs {Note: RASS-0 07/25 right jg9 ankle pain.} Route: PO; 07:54 Follow up: Response: No adverse reaction; Medication administered at discharge. jg9 Medication: 07:40 VIS not applicable for this client. jg9 Outcome: 07:03 Discharge ordered by MD. son 07:54 Discharged to home via ambulance. jg9 07:54 Condition: stable 07:54 Discharge instructions given to patient, Instructed on discharge instructions, follow up and referral plans. Demonstrated understanding of instructions, follow-up care, walking boot use Prescriptions given X 2. 07:55 Patient left the ED. jg9 Signatures: Dispatcher [employer] Yuniel Mejia MD MD cha Alexander, Lesly Oliveira 5 Jeri Espana, RN RN jg9
--- NOTE | 2022-07-17 07:04 | EDPHYS ---
Physician Documentation [facility] Name: Anant Deras Age: 37 yrs Sex: Female : 1985 Arrival Date: 07/17/2022 Time: 06:05 Bed 15 Private MD: ED Physician Yuniel Craig HPI: 07/17 06:54 This 37 yrs old Female presents to ER via Wheelchair with complaints of Ankle huy Injury. 06:54 This 37 yrs old Female presents to ER via Wheelchair with complaints of Ankle huy Injury. 06:54 The patient presents with decreased range of motion, pain, that is acute. The huy complaints affect the left ankle. Onset: The symptoms/episode began/occurred just prior to arrival. Context: resulted from the patient tripping, The mechanism of injury involved inversion of the affected ankle. The patient can partially bear weight on the affected extremity. Associated signs and symptoms: The patient has no apparent associated signs or symptoms. Modifying factors: The symptoms are alleviated by elevation of extremity, ice packs. Severity of symptoms: At their worst the symptoms were mild, moderate, in the emergency department the symptoms are unchanged. The patient has not experienced similar symptoms in the past. 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 - Social history:: Smoking status: Patient reports the use of cigarette tobacco products, denies chronic smoking, but will smoke occasionally. - Family history:: not pertinent. ROS: 06:54 Constitutional: Negative for fever, chills, and weight loss, Eyes: Negative for injury, huy pain, redness, and discharge, ENT: Negative for injury, pain, and discharge, Neck: Negative for injury, pain, and swelling, Cardiovascular: Negative for chest pain, palpitations, and edema, Respiratory: Negative for shortness of breath, cough, wheezing, and pleuritic chest pain, Abdomen/GI: Negative for abdominal pain, nausea, vomiting, diarrhea, and constipation, Back: Negative for injury and pain, : Negative for injury, bleeding, discharge, and swelling, Skin: Negative for injury, rash, and discoloration, Neuro: Negative for headache, weakness, numbness, tingling, and seizure, Psych: Negative for depression, anxiety, suicide ideation, homicidal ideation, and hallucinations, Allergy/Immunology: Negative for hives, rash, and allergies, Endocrine: Negative for neck swelling, polydipsia, polyuria, polyphagia, and marked weight changes. 06:54 MS/extremity: Positive for injury or acute deformity, decreased range of motion, pain, swelling, tenderness, of the left lateral ankle, lateral aspect of left foot, left medial ankle and anterior aspect of left ankle. Exam: 06:54 Constitutional: This is a well developed, well nourished patient who is awake, alert, huy and in no acute distress. Head/Face: Normocephalic, atraumatic. Eyes: Pupils equal round and reactive to light, extra-ocular motions intact. Lids and lashes normal. Conjunctiva and sclera are non-icteric and not injected. Cornea within normal limits. Periorbital areas with no swelling, redness, or edema. ENT: Nares patent. No nasal discharge, no septal abnormalities noted. Tympanic membranes are normal and external auditory canals are clear. Oropharynx with no redness, swelling, or masses, exudates, or evidence of obstruction, uvula midline. Mucous membranes moist. Neck: Trachea midline, no thyromegaly or masses palpated, and no cervical lymphadenopathy. Supple, full range of motion without nuchal rigidity, or vertebral point tenderness. No Meningismus. Chest/axilla: Normal chest wall appearance and motion. Nontender with no deformity. No lesions are appreciated. Cardiovascular: Regular rate and rhythm with a normal S1 and S2. No gallops, murmurs, or rubs. Normal PMI, no JVD. No pulse deficits. Respiratory: Lungs have equal breath sounds bilaterally, clear to auscultation and percussion. No rales, rhonchi or wheezes noted. No increased work of breathing, no retractions or nasal flaring. Abdomen/GI: Soft, non-tender, with normal bowel sounds. No distension or tympany. No guarding or rebound. No evidence of tenderness throughout. Back: No spinal tenderness. No costovertebral tenderness. Full range of motion. Skin: Warm, dry with normal turgor. Normal color with no rashes, no lesions, and no evidence of cellulitis. Neuro: Awake and alert, GCS 15, oriented to person, place, time, and situation. Cranial nerves II-XII grossly intact. Motor strength 5/5 in all extremities. Sensory grossly intact. Cerebellar exam normal. Normal gait. Psych: Awake, alert, with orientation to person, place and time. Behavior, mood, and affect are within normal limits. 06:54 Musculoskeletal/extremity: Extremities: grossly normal except: contusion, decreased ROM, pain, ROM: limited active range of motion, limited passive range of motion, limited active range of motion due to pain, limited passive range of motion due to pain, in the left lateral ankle, left medial ankle and anterior aspect of left ankle, Circulation is intact in all extremities. Sensation intact. Compartment Syndrome exam of affected extremity: is normal. Weight bearing: can bear weight with assistance only, uses crutches, DVT Exam: negative Homans' sign noted on exam, no appreciated bluish discoloration, no erythema, no increased warmth, pain, swelling, tenderness. Vital Signs: 06:09 BP 99 / 78; Pulse 95; Resp 18; Temp 98.7; Pulse Ox 99% on R/A; Weight 75.3 kg; Height 5 tw5 ft. 2 in. (157.48 cm); Pain 10/10; 07:15 BP 121 / 68; Pulse 86; Resp 17 S; Pulse Ox 95% on R/A; Pain 9/10; jg9 06:09 Body Mass Index 30.36 (75.30 kg, 157.48 cm) tw5 MDM: 06:34 Patient medically screened. [facility] 07:01 Differential diagnosis: fracture, sprain, arthritis. Data reviewed: vital signs, nurses [facility] notes, radiologic studies, plain films. Data interpreted: personnel monitor: not applicable for this patient encounter. rate is 95 beats/min, rhythm is regular, Pulse oximetry: on room air is 99 %. Test interpretation: by ED physician or midlevel provider: plain radiologic studies. Counseling: I had a detailed discussion with the patient and/or guardian regarding: radiology results. 07/17 06:35 Order name: Ankle Left 3 View XRAY as6 07/17 06:54 Order name: Walking boot; Complete Time: 07:33 huy Administered Medications: 07:15 Drug: Motrin (ibuprofen) 600 mg Route: PO; jg9 07:55 Follow up: Response: No adverse reaction; Medication administered at discharge. jg9 07:15 Drug: [place] (HYDROcodone-acetaminophen) 10 mg-325 mg 1 tabs {Note: RASS-0 9/10 right jg9 ankle pain.} Route: PO; 07:54 Follow up: Response: No adverse reaction; Medication administered at discharge. jg9 Disposition Summary: 07/17/22 07:03 Discharge Ordered Location: Home huy Problem: new huy Symptoms: have improved huy Condition: Stable huy Diagnosis - Sprain of calcaneofibular ligament of left ankle huy - Sprain of ankle huy Followup: huy - With: Private Physician - When: 2 - 3 days - Reason: Recheck today's complaints, Re-evaluation by your physician Followup: huy - With: Og Portillo MD - When: 2 - 3 days - Reason: Recheck today's complaints, Re-evaluation by your physician Discharge Instructions: - Discharge Summary Sheet huy - Ankle Sprain huy - Ankle Sprain, [id number] huy - Ankle Pain [facility] Forms: - Medication Reconciliation Form [facility] - Thank You Letter huy - Antibiotic Education huy - Prescription Opioid Use huy - Work release form jg9 Prescriptions: - Ibuprofen 600 mg Oral Tablet - take 1 tablet by ORAL route every 6 hours As needed take with food; 20 tablet; huy Refills: 0, Product Selection Permitted - Tylenol-Codeine #3 300 mg-30 mg Oral - take 2 tablet by ORAL route every 6 hours; 24 tablet; Refills: 0, Product [facility] Selection Permitted Signatures: Dispatcher [employer] Yuniel Mejia MD MD cha Wood, [facility] Jeri Espana RN RN jg9
[2022-07-17] MEDS ORDERED: IBUPROFEN 200 MG TAB PO ONE (07:29)
[2022-07-17] MEDS ORDERED: HYDROCODONE/APAP 10/325 TAB ONE (07:29)
[2022-07-17] MEDS ORDERED: IBUPROFEN 400 MG TAB ONE (07:29)
--- NOTE | 2022-07-17 07:59 | RAD REPORT ---
EXAM DESCRIPTION: RAD - Ankle Left 3 View -07/17/2022 6:51 am CLINICAL HISTORY: Left ankle pain FINDINGS: No fracture or dislocation is seen. No bone or joint abnormality
[2022-07-17 08:18] VITALS: TEMP 98.7
[2022-07-17 08:23] VITALS: BP 121/68; O2SAT 95
== END 2022-07-17 07:55 | disposition home or self-care (01) ==
LOC: ER 06:00
DX: S93.412A Sprain of calcaneofibular ligament of left ankle, initial encounter (principal); F17.210 Nicotine dependence, cigarettes, uncomplicated
CPT/HCPCS: 99283